=== PATIENT | male | born 1960 | race Caucasian/White ===

== ENCOUNTER → 2017-07-03 | Outpatient (CLI) | payer OTHER ==
[~2017-07-03] MED LIST: REGADENOSON 0.4 MG/5 ML SYRINGE ONE
== END | disposition home or self-care (01) ==
LOC: RAD 07:10
PROVIDERS: ATTEND Internal Medicine Cardiovascular Disease
DX: I34.0 Nonrheumatic mitral (valve) insufficiency (principal); E11.9 Type 2 diabetes mellitus without complications; E66.01 Morbid (severe) obesity due to excess calories; I10 Essential (primary) hypertension
CPT/HCPCS: 78452; 93017; 93306; A9502; J2785

== ENCOUNTER → 2017-10-22 | Outpatient (CLI) | payer OTHER | END | disposition home or self-care (01) | LOC: WOUND 08:09 | PROVIDERS: ATTEND Internal Medicine | DX: E11.621 Type 2 diabetes mellitus with foot ulcer (principal); L97.511 Non-pressure chronic ulcer of other part of right foot limited to breakdown of skin; I10 Essential (primary) hypertension; E11.42 Type 2 diabetes mellitus with diabetic polyneuropathy; E66.01 Morbid (severe) obesity due to excess calories; Z68.38 Body mass index [BMI] 38.0-38.9, adult | CPT/HCPCS: 11042; 99215 ==

== ENCOUNTER → 2017-10-30 | Outpatient (CLI) | payer OTHER | END | disposition home or self-care (01) | LOC: WOUND 08:14 | PROVIDERS: ATTEND Podiatrist Foot & Ankle Surgery | DX: E11.621 Type 2 diabetes mellitus with foot ulcer (principal); L97.511 Non-pressure chronic ulcer of other part of right foot limited to breakdown of skin; I10 Essential (primary) hypertension; E66.01 Morbid (severe) obesity due to excess calories; E11.42 Type 2 diabetes mellitus with diabetic polyneuropathy; Z68.38 Body mass index [BMI] 38.0-38.9, adult | CPT/HCPCS: 97597 ==

== ENCOUNTER → 2017-11-13 | Outpatient (CLI) | payer OTHER | END | disposition home or self-care (01) | LOC: WOUND 08:25 | PROVIDERS: ATTEND Podiatrist Foot & Ankle Surgery | DX: E11.621 Type 2 diabetes mellitus with foot ulcer (principal); L97.512 Non-pressure chronic ulcer of other part of right foot with fat layer exposed; L84 Corns and callosities; E66.01 Morbid (severe) obesity due to excess calories; E11.65 Type 2 diabetes mellitus with hyperglycemia; E11.42 Type 2 diabetes mellitus with diabetic polyneuropathy; I10 Essential (primary) hypertension; Z68.38 Body mass index [BMI] 38.0-38.9, adult | CPT/HCPCS: 11042 ==

== ENCOUNTER → 2017-11-20 | Outpatient (CLI) | payer OTHER | END | disposition home or self-care (01) | LOC: WOUND 08:00 | PROVIDERS: ATTEND Podiatrist Foot & Ankle Surgery | DX: E11.621 Type 2 diabetes mellitus with foot ulcer (principal); L97.512 Non-pressure chronic ulcer of other part of right foot with fat layer exposed; I10 Essential (primary) hypertension; E11.42 Type 2 diabetes mellitus with diabetic polyneuropathy; E66.01 Morbid (severe) obesity due to excess calories; L84 Corns and callosities; Z68.38 Body mass index [BMI] 38.0-38.9, adult | CPT/HCPCS: 11042 ==

== ENCOUNTER → 2017-12-11 | Outpatient (CLI) | payer OTHER | END | disposition home or self-care (01) | LOC: WOUND 08:33 | PROVIDERS: ATTEND Podiatrist Foot & Ankle Surgery | DX: E11.621 Type 2 diabetes mellitus with foot ulcer (principal); L97.511 Non-pressure chronic ulcer of other part of right foot limited to breakdown of skin; E11.65 Type 2 diabetes mellitus with hyperglycemia; I10 Essential (primary) hypertension; E11.42 Type 2 diabetes mellitus with diabetic polyneuropathy; E66.01 Morbid (severe) obesity due to excess calories; Z68.38 Body mass index [BMI] 38.0-38.9, adult | CPT/HCPCS: 11042 ==

== ENCOUNTER → 2017-12-17 | Outpatient (CLI) | payer OTHER | END | disposition home or self-care (01) | LOC: WOUND 08:27 | PROVIDERS: ATTEND Internal Medicine | DX: E11.621 Type 2 diabetes mellitus with foot ulcer (principal); L97.512 Non-pressure chronic ulcer of other part of right foot with fat layer exposed; E11.65 Type 2 diabetes mellitus with hyperglycemia; E11.42 Type 2 diabetes mellitus with diabetic polyneuropathy; I10 Essential (primary) hypertension; E66.01 Morbid (severe) obesity due to excess calories; Z68.38 Body mass index [BMI] 38.0-38.9, adult | CPT/HCPCS: 11042 ==

== ENCOUNTER → 2018-01-01 | Outpatient (CLI) | payer OTHER | END | disposition home or self-care (01) | LOC: WOUND 14:09 | PROVIDERS: ATTEND Podiatrist Foot & Ankle Surgery | DX: E11.621 Type 2 diabetes mellitus with foot ulcer (principal); L97.512 Non-pressure chronic ulcer of other part of right foot with fat layer exposed; E11.65 Type 2 diabetes mellitus with hyperglycemia; E11.42 Type 2 diabetes mellitus with diabetic polyneuropathy; I10 Essential (primary) hypertension; E66.01 Morbid (severe) obesity due to excess calories; Z68.38 Body mass index [BMI] 38.0-38.9, adult | CPT/HCPCS: 97597 ==

== ENCOUNTER → 2018-01-29 | Outpatient (CLI) | payer OTHER | END | disposition home or self-care (01) | LOC: WOUND 09:03 | PROVIDERS: ATTEND Podiatrist Foot & Ankle Surgery | DX: E11.621 Type 2 diabetes mellitus with foot ulcer (principal); L97.512 Non-pressure chronic ulcer of other part of right foot with fat layer exposed; E11.65 Type 2 diabetes mellitus with hyperglycemia; E11.42 Type 2 diabetes mellitus with diabetic polyneuropathy; I10 Essential (primary) hypertension; E66.01 Morbid (severe) obesity due to excess calories; Z68.38 Body mass index [BMI] 38.0-38.9, adult | CPT/HCPCS: 11042 ==

== ENCOUNTER → 2018-02-05 | Outpatient (CLI) | payer OTHER | END | disposition home or self-care (01) | LOC: WOUND 10:45 | PROVIDERS: ATTEND Podiatrist Foot & Ankle Surgery | DX: E11.621 Type 2 diabetes mellitus with foot ulcer (principal); L97.512 Non-pressure chronic ulcer of other part of right foot with fat layer exposed; E11.65 Type 2 diabetes mellitus with hyperglycemia; E11.42 Type 2 diabetes mellitus with diabetic polyneuropathy; I10 Essential (primary) hypertension; E66.01 Morbid (severe) obesity due to excess calories; Z68.38 Body mass index [BMI] 38.0-38.9, adult | CPT/HCPCS: 97597 ==

== ENCOUNTER → 2018-03-05 | Outpatient (CLI) | payer OTHER | END | disposition home or self-care (01) | LOC: WOUND 10:30 | PROVIDERS: ATTEND Podiatrist Foot & Ankle Surgery | DX: E11.621 Type 2 diabetes mellitus with foot ulcer (principal); L97.512 Non-pressure chronic ulcer of other part of right foot with fat layer exposed; E11.65 Type 2 diabetes mellitus with hyperglycemia; E11.42 Type 2 diabetes mellitus with diabetic polyneuropathy; I10 Essential (primary) hypertension; E66.01 Morbid (severe) obesity due to excess calories; Z68.38 Body mass index [BMI] 38.0-38.9, adult | CPT/HCPCS: 11042 ==

== ENCOUNTER → 2018-03-19 | Outpatient (CLI) | payer OTHER | END | disposition home or self-care (01) | LOC: WOUND 08:26 | PROVIDERS: ATTEND Podiatrist Foot & Ankle Surgery | DX: E11.621 Type 2 diabetes mellitus with foot ulcer (principal); L97.512 Non-pressure chronic ulcer of other part of right foot with fat layer exposed; E11.65 Type 2 diabetes mellitus with hyperglycemia; E11.42 Type 2 diabetes mellitus with diabetic polyneuropathy; L84 Corns and callosities; I10 Essential (primary) hypertension; E66.01 Morbid (severe) obesity due to excess calories; Z68.39 Body mass index [BMI] 39.0-39.9, adult | CPT/HCPCS: 11042 ==

== ENCOUNTER → 2018-03-26 | Outpatient (CLI) | payer OTHER | END | disposition home or self-care (01) | LOC: WOUND 11:00 | PROVIDERS: ATTEND Podiatrist Foot & Ankle Surgery | DX: E11.621 Type 2 diabetes mellitus with foot ulcer (principal); L97.512 Non-pressure chronic ulcer of other part of right foot with fat layer exposed; E11.65 Type 2 diabetes mellitus with hyperglycemia; E11.42 Type 2 diabetes mellitus with diabetic polyneuropathy; L84 Corns and callosities; I10 Essential (primary) hypertension; E66.01 Morbid (severe) obesity due to excess calories; Z68.38 Body mass index [BMI] 38.0-38.9, adult | CPT/HCPCS: 11042 ==

== ENCOUNTER → 2018-04-02 | Outpatient (CLI) | payer OTHER | END | disposition home or self-care (01) | LOC: WOUND 09:58 | PROVIDERS: ATTEND Podiatrist Foot & Ankle Surgery | DX: E11.621 Type 2 diabetes mellitus with foot ulcer (principal); L97.512 Non-pressure chronic ulcer of other part of right foot with fat layer exposed; E11.65 Type 2 diabetes mellitus with hyperglycemia; E11.42 Type 2 diabetes mellitus with diabetic polyneuropathy; L84 Corns and callosities; I10 Essential (primary) hypertension; E66.01 Morbid (severe) obesity due to excess calories; Z68.38 Body mass index [BMI] 38.0-38.9, adult | CPT/HCPCS: 97597 ==

== ENCOUNTER → 2018-04-30 | Outpatient (CLI) | payer OTHER | END | disposition home or self-care (01) | LOC: WOUND 13:03 | PROVIDERS: ATTEND Podiatrist Foot & Ankle Surgery | DX: E11.621 Type 2 diabetes mellitus with foot ulcer (principal); L97.512 Non-pressure chronic ulcer of other part of right foot with fat layer exposed; E11.42 Type 2 diabetes mellitus with diabetic polyneuropathy; L84 Corns and callosities; I10 Essential (primary) hypertension; E66.01 Morbid (severe) obesity due to excess calories; Z68.38 Body mass index [BMI] 38.0-38.9, adult | CPT/HCPCS: 11042 ==

== ENCOUNTER → 2018-05-14 | Outpatient (CLI) | payer OTHER | END | disposition home or self-care (01) | LOC: WOUND 08:00 | PROVIDERS: ATTEND Podiatrist Foot & Ankle Surgery | DX: E11.621 Type 2 diabetes mellitus with foot ulcer (principal); L97.512 Non-pressure chronic ulcer of other part of right foot with fat layer exposed; E11.42 Type 2 diabetes mellitus with diabetic polyneuropathy; I10 Essential (primary) hypertension; L84 Corns and callosities; E66.01 Morbid (severe) obesity due to excess calories; Z68.38 Body mass index [BMI] 38.0-38.9, adult | CPT/HCPCS: 11042 ==

== ENCOUNTER 2018-06-04 15:05 | Outpatient (CLI) | payer OTHER | END 2018-06-04 23:59 | disposition home or self-care (01) | LOC: WOUND 15:05 | PROVIDERS: ATTEND Podiatrist Foot & Ankle Surgery | DX: E11.621 Type 2 diabetes mellitus with foot ulcer (principal); L97.512 Non-pressure chronic ulcer of other part of right foot with fat layer exposed; L84 Corns and callosities; I10 Essential (primary) hypertension; E11.65 Type 2 diabetes mellitus with hyperglycemia; E11.42 Type 2 diabetes mellitus with diabetic polyneuropathy; E66.01 Morbid (severe) obesity due to excess calories; Z68.38 Body mass index [BMI] 38.0-38.9, adult | CPT/HCPCS: 97597 ==

== ENCOUNTER 2018-06-18 08:39 | Outpatient (CLI) | payer OTHER | END 2018-06-18 23:59 | disposition home or self-care (01) | LOC: WOUND 08:39 | PROVIDERS: ATTEND Podiatrist Foot & Ankle Surgery | DX: E11.621 Type 2 diabetes mellitus with foot ulcer (principal); L97.512 Non-pressure chronic ulcer of other part of right foot with fat layer exposed; E11.42 Type 2 diabetes mellitus with diabetic polyneuropathy; E11.65 Type 2 diabetes mellitus with hyperglycemia; L84 Corns and callosities; Z68.38 Body mass index [BMI] 38.0-38.9, adult; I10 Essential (primary) hypertension; E66.01 Morbid (severe) obesity due to excess calories | CPT/HCPCS: 97597 ==

== ENCOUNTER 2018-07-09 08:26 | Outpatient (CLI) | payer OTHER | END 2018-07-09 23:59 | disposition home or self-care (01) | LOC: WOUND 08:26 | PROVIDERS: ATTEND Podiatrist Foot & Ankle Surgery | DX: E11.621 Type 2 diabetes mellitus with foot ulcer (principal); L97.518 Non-pressure chronic ulcer of other part of right foot with other specified severity; E11.65 Type 2 diabetes mellitus with hyperglycemia; E11.40 Type 2 diabetes mellitus with diabetic neuropathy, unspecified; E11.42 Type 2 diabetes mellitus with diabetic polyneuropathy; L84 Corns and callosities; I10 Essential (primary) hypertension; E66.01 Morbid (severe) obesity due to excess calories; Z68.38 Body mass index [BMI] 38.0-38.9, adult | CPT/HCPCS: 99213 ==

== ENCOUNTER 2019-12-23 16:26 | Emergency (ER) | payer OTHER ==
[~2019-12-23] VITALS: Ht 182.9 cm; Wt 127.0 kg
[2019-12-23 17:32] LABS: BASOPHILS # (AUTO) 0.03 x10^3/uL (0-0.1); BASOPHILS % (AUTO) 1 % (0-1); EOSINOPHILS # (AUTO) 0.02 x10^3/uL (0-0.4); EOSINOPHILS % (AUTO) 0 % (1-7); LYMPHOCYTES # (AUTO) 1.98 x10^3/uL (1-3.4); LYMPHOCYTES % (AUTO) 36 % (22-44); MD NO; MEAN CORPUSCULAR HGB CONC 33.9 g/dL (33.2-36.2); MEAN PLATELET VOLUME 9.3 fL (7.4-10.4); MONOCYTES # (AUTO) 1.07 x10^3/uL (0.2-0.8); MONOCYTES % (AUTO) 20 % (2-9); NEUTROPHILS # (AUTO) 2.34 x10^3/uL (1.8-6.8); NEUTROPHILS % (AUTO) 43 % (42-75); PLATELET COUNT 133 x10^3/uL (130-400); RED BLOOD COUNT 4.64 x10^6/uL (4.38-5.82); RED CELL DISTRIBUTION WIDTH 13.2 % (9.4-14.8)
[2019-12-23 17:42] LABS: ALANINE AMINOTRANSFERASE 43 U/L (12-78); ANION GAP 7 mmol/L (5-15); CALCIUM 8.3 mg/dL (8.5-10.1); CHLORIDE 104 mmol/L (98-107); CREATININE 1.14 mg/dL (0.7-1.3)
[2019-12-23 17:44] LABS: ALKALINE PHOSPHATASE 64 U/L (45-117); BILIRUBIN,TOTAL 0.4 mg/dL (0.2-1.0); TOTAL PROTEIN 7.8 g/dL (6.4-8.2)
[2019-12-23 18:14] VITALS: BP 142/78
--- NOTE | 2019-12-23 18:15 | NUR ---
Patient/Caregiver given discharge instructions and they have confirmed that they understand the instructions. Patient ambulatory with steady gait.
== END 2019-12-23 18:25 | disposition home or self-care (01) ==
LOC: ED 17:50
DX: J06.9 Acute upper respiratory infection, unspecified (principal); R51 Headache
CPT/HCPCS: 36415; 71045; 80053; 83605; 84145; 85025; 93005; 99285